=== PATIENT | female | born 1990 | race Caucasian/White ===

== ENCOUNTER 2021-01-16 20:29 | Inpatient (IN) | payer OTHER ==
[2021-01-16] MEDS ORDERED: Water For Irrigation,Sterile 1,000 ML Container IRR PRN (21:08)
[2021-01-16] MEDS ORDERED: Sodium Chloride 0.9% 2.5 ML Syringe FLUSH PRN (21:08)
[2021-01-16] MEDS ORDERED: Sodium Chloride 0.9% 10 ML SDV IV PRN (21:08)
[2021-01-16] MEDS ORDERED: Sodium Chloride 0.9% 10 ML Syringe FLUSH PRN (21:08)
[2021-01-16] MEDS ORDERED: Butorphanol 1 MG/ML SDV IVPUSH PRN (21:08)
[2021-01-16] MEDS ORDERED: Tranexamic Acid 1,000 MG in Sodium Chloride 0.9% 100 ML IV PRN (21:08)
[2021-01-16] MEDS ORDERED: Methylergonovine 0.2 MG/1 ML Amp IM PRN (21:08)
[2021-01-16] MEDS ORDERED: Nalbuphine 10 MG/1 ML Vial IVPUSH PRN (21:08)
[2021-01-16] MEDS ORDERED: Lidocaine 1% 50 ML MDV INJECT PRN (21:08)
[2021-01-16] MEDS ORDERED: Misoprostol 200 MCG Tab PO PRN (21:08)
[2021-01-16] MEDS ORDERED: Carboprost Tromethamine 250 MCG/1 ML Amp IM PRN (21:08)
[2021-01-16] MEDS ORDERED: Oxytocin/0.9 % Sodium Chloride 30 UNIT/500 ML BAG IV SCH (21:15)
[2021-01-17] MEDS ORDERED: Bupivacaine 0.25% 10 ML SDV ONE (00:33)
[2021-01-17] MEDS ORDERED: Ropivacaine HCl/PF 200 ML ONE (00:33)
[2021-01-17] MEDS: Lactated Ringers 1,000 ML IV SCH ×3 (00:50→08:00)
--- NOTE | 2021-01-17 01:02 | PCM.PREANE ---
Preanesthetic Assessment - Anesthesia/Transfusion/Family Hx Anesthesia History: Prior Anesthesia Without Reaction Family History of Anesthesia Reaction: No Transfusion History: No Prior Transfusion(s) - Review of Systems General: No Symptoms Pulmonary: No Symptoms Cardiovascular: No Symptoms Gastrointestinal: No Symptoms Neurological: No Symptoms Other: Reports: None - Physical Assessment NPO Status Date: 01/17/21 NPO Status Time: 00:00 Height: 5 ft 2 in Weight: 175 lb ASA Class: 2 Mental Status: Alert & Oriented x3 Airway Class: Mallampati = 3 Dentition: Reports: Normal Dentition ROM/Head Extension: Full Lungs: Clear to Auscultation, Normal Respiratory Effort Cardiovascular: Regular Rate, Regular Rhythm - Lab Values: Laboratory Last Values WBC 10.20 K/uL (4.0-11.0) 01/16/21 22:00 RBC 4.10 M/uL (4.30-5.90) L 01/16/21 22:00 Hgb 12.4 g/dL (12.0-16.0) 01/16/21 22:00 Hct 35.5 % (36.0-46.0) L 01/16/21 22:00 MCV 86.6 fL (80.0-98.0) 01/16/21 22:00 MCH 30.2 pg (27.0-32.0) 01/16/21 22:00 MCHC 34.9 g/dL (31.0-37.0) 01/16/21 22:00 RDW Std Deviation 40.6 fl (28.0-62.0) 01/16/21 22:00 RDW Coeff of Bryanna 13 % (11.0-15.0) 01/16/21 22:00 Plt Count 231 K/uL (150-400) 01/16/21 22:00 MPV 10.90 fL (7.40-12.00) 01/16/21 22:00 Nucleated RBC % 0.0 /100WBC 01/16/21 22:00 Nucleated RBCs # 0 K/uL 01/16/21 22:00 SARS-CoV-2 RNA (LUIS ANTONIO) NEGATIVE (NEGATIVE) 01/16/21 21:45 Blood Type A POSITIVE 01/16/21 22:00 Antibody Screen NEGATIVE 01/16/21 22:00 - Allergies Allergies/Adverse Reactions: Allergies Allergy/AdvReac Type Severity Reaction Status Date / Time Sulfa (Sulfonamide Allergy Hives Verified 01/16/21 21:05 Antibiotics) - Blood Blood Available: Yes Product(s) Available: PRBC - Anesthesia Plan Pre-Op Medication Ordered: None - Acknowledgements Anesthesia Type Planned: Epidural Pt an Appropriate Candidate for the Planned Anesthesia: Yes Alternatives and Risks of Anesthesia Discussed w Pt/Guardian: Yes Pt/Guardian Understands and Agrees with Anesthesia Plan: Yes PreAnesthesia Questionnaire HEENT History: Reports: Impaired Vision Cardiovascular History: Reports: None Respiratory History: Reports: None Gastrointestinal History: Reports: Other (See Below) Other Gastrointestinal History: heartburn with Genitourinary History: Reports: None SOLVENT 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: Musculoskeletal History: Reports: Fracture Neurological History: Reports: Concussion Psychiatric History: Reports: None Endocrine/Metabolic History: Reports: None Hematologic History: Reports: None Immunologic History: Reports: None Oncologic (Cancer) History: Reports: None Dermatologic History: Reports: None - Infectious Disease History Infectious Disease History: Reports: Chicken Pox - Past Surgical History HEENT Surgical History: Reports: None Female Surgical History: Reports: None Musculoskeletal Surgical History: Reports: ORIF - SUBSTANCE USE Tobacco Use Status *Q: Never Tobacco User Second Hand Smoke Exposure: No Recreational Drug Use History: No - HOME MEDS Home Medications: Home Meds Calcium Carb/Magnesium Hydrox [Rolaids Chewable Tablet] 2 tab PO ASDIRECTED PRN 01/16/21 [History] Vit #76/Iron,Carb/Fa [Pnv 29-1 Tablet] 1 tab PO DAILY 01/16/21 [History] - CURRENT (IN HOUSE) MEDS Current Meds: Current Medications Butorphanol Tartrate (Butorphanol 1 Mg/Ml Sdv) 1 mg IVPUSH Q1H PRN PRN Reason: Pain (severe 7-10) Carboprost Tromethamine (Carboprost Tromethamine 250 Mcg/1 Ml Amp) 250 mcg IM ASDIRECTED PRN PRN Reason: Post Hemorrhage Oxytocin/Sodium Chloride (Oxytocin 30 Unit/500 Ml-Ns) 30 unit in 500 mls @ 500 mls/hr IV TITRATE [facility] Tranexamic Acid 1,000 mg/ (Sodium Chloride) 110 mls @ 660 mls/hr IV ONETIME PRN PRN Reason: Bleeding Lactated Ringer's (Ringers, Lactated) 1,000 mls @ 150 mls/hr IV ASDIRECTED SHANTEL Last Admin: 01/17/21 00:50 Dose: 999 mls/hr Documented by: Lidocaine HCl (Lidocaine 1% 50 Ml Mdv) 50 ml INJECT ONETIME PRN PRN Reason: Laceration repair Methylergonovine Maleate (Methylergonovine 0.2 Mg/1 Ml Amp) 0.2 mg IM ASDIRECTED PRN PRN Reason: Post Hemorrhage Misoprostol (Misoprostol 200 Mcg Tab) 200 mcg PO ONETIME PRN PRN Reason: Post Hemorrhage Nalbuphine HCl (Nalbuphine 10 Mg/1 Ml Vial) 10 mg IVPUSH Q1H PRN PRN Reason: Pain (severe 7-10) Sodium Chloride (Sodium Chloride 0.9% 10 Ml Syringe) 10 ml FLUSH ASDIRECTED PRN PRN Reason: Keep Vein Open Sodium Chloride (Sodium Chloride 0.9% 2.5 Ml Syringe) 2.5 ml FLUSH ASDIRECTED PRN PRN Reason: Keep Vein Open Sodium Chloride (Sodium Chloride 0.9% 10 Ml Sdv) 10 ml IV ASDIRECTED PRN PRN Reason: IV Use Sterile Water (Water For Irrigation,Sterile 1,000 Ml Container) 1,000 ml IRR ASDIRECTED PRN PRN Reason: delivery Discontinued Medications Bupivacaine HCl (Bupivacaine 0.25% 10 Ml Sdv) Confirm Administered Dose 10 ml .ROUTE .STK-MED ONE Stop: 01/17/21 00:34 Ropivacaine (Naropin 0.2%) Confirm Administered Dose 200 mls @ as directed .ROUTE .[facility]-MED ONE Stop: 01/17/21 00:34 - Pre-Procedure Checklist Attending Provider Aware: Yes Chart Reviewed: Yes Consent Signed: Yes Labs Reviewed: Yes VS/FHR Reviewed: Yes Patient Identification Confirmation Method: Reports: Verbal Patient Pt an Appropriate Candidate for the Planned Anesthesia: Yes Alternatives and Risks of Anesthesia Discussed w Pt/Guardian: Yes - Procedure Procedure Start Date: 01/17/21 Procedure Start Time: 00:[address]: Reports: Blood Pressure, Heart Rate, SPO2 Functional IV: Yes Safety Measures: Reports: Patient Identified, Procedure Verified, Site Verified, Procedure Time Out Patient Position: Reports: Left Lateral Prep: Reports: Betadine x3 Local Anesthetic: Reports: Intradermal Wheal w Lidocaine 1% Regional Placement Level: Reports: L3-4 Needle: Reports: 17 g Touhy Approach: Reports: Midline Technique: Reports: ELYSIA Plastic Syringe Parasthesia: Reports: None Test Dose Time: 00:43 Test Dose Medication: Reports: Lidocaine 1.5% w Epinephrine 1:200,000 Test Dose Response: Reports: Negative Loading Dose Time: 00:42 Loading Dose Medication: bupivicaine 0.25% 10cc Loading Dose Patient Position: sitting Continuous Infusion Start Time: 00:45 Continuous Infusion Medication: ropivicaine 0.2% Continuous Infusion Rate: 15 Continuous Infusion PCS Bolus Option: 4 Patient Position Post Placement: Reports: Supline/CHIQUIS Level Achieved: adequate VS and FHR Monitored in Unit Post Placement: Yes Procedure End Date: 01/17/21 Procedure End Time: 01:35
[2021-01-17] MEDS ORDERED: Sodium Chloride 0.9% 1,000 ML IRR SCH (06:00)
[2021-01-17] MEDS ORDERED: Terbutaline 1 MG/ML SDV SUBCUT PRN (06:45)
[2021-01-17] MEDS ORDERED: Oxytocin/0.9 % Sodium Chloride 30 UNIT/500 ML BAG IV SCH (06:45)
[2021-01-17] MEDS ORDERED: Lanolin 100% Cream 7 GM Tube TOP PRN (09:26)
[2021-01-17] MEDS ORDERED: Benzocaine/Menthol 20%-0.5% Spray 78 GM Cannister TOP PRN (09:26)
[2021-01-17] MEDS ORDERED: Witch Hazel Medicated Pads 40/Jar TOP PRN (09:26)
[2021-01-17] MEDS ORDERED: Bisacodyl 10 MG Supp RECTAL PRN (09:26)
[2021-01-17] MEDS ORDERED: Ibuprofen 400 MG Tab PO PRN (09:26)
[2021-01-17] MEDS ORDERED: Docusate Sodium 100 MG Cap PO PRN (09:26)
[2021-01-17] MEDS ORDERED: Acetaminophen 500 MG Tab PO PRN (09:26)
[2021-01-17] MEDS ORDERED: oxyCODONE 5 MG Tab PO PRN (09:26)
--- NOTE | 2021-01-17 09:38 | PCM.DEL ---
L & D Note - General Info Date of Service: 01/17/21 Mother's Due Date: 01/10/21 - Delivery Note Labor: Spontaneous Delivery Method: Spontaneous Vaginal Delivery-Single Delivery Mode: Vacuum Extraction Presentation: Right Occiput Anterior (SOPHIE) Nuchal Cord: Present (x1, loose, reduced) Anesthesia Type: Epidural Amniotic Fluid Description: Meconium Stained Laceration: 1st Degree, Labial (bilateral) Suture type: Other (2-0 Vicryl, 3-0 Chromic) Placenta: Intact, Spontaneous (sent for further evaluation due to small size) Cord: 3 Vessels Estimated Blood Loss: 150 Resuscitation Needed: No : Bulb Syringe Score 1 min: 8 Score 5 min: 9 Delivery Comments (Free Text/Narrative):: Dictation #[id number] - General Info Date of Service: 01/17/21 - Patient Data Weight - Most Recent: 175 lb Lab Results Last 24 Hours: Laboratory Results - last 24 hr 01/16/21 01/16/21 01/16/21 Range/Units 21:45 22:00 22:00 WBC 10.20 (4.0-11.0) K/uL RBC 4.10 L (4.30-5.90) M/uL Hgb 12.4 (12.0-16.0) g/dL Hct 35.5 L (36.0-46.0) % MCV 86.6 (80.0-98.0) fL MCH 30.2 (27.0-32.0) pg MCHC 34.9 (31.0-37.0) g/dL RDW Std Deviation 40.6 (28.0-62.0) fl RDW Coeff of Bryanna 13 (11.0-15.0) % Plt Count 231 (150-400) K/uL MPV 10.90 (7.40-12.00) fL Nucleated RBC % 0.0 /100WBC Nucleated RBCs # 0 K/uL SARS-CoV-2 RNA (LUIS ANTONIO) NEGATIVE (NEGATIVE) Blood Type A POSITIVE Antibody Screen NEGATIVE Med Orders - Current: Current Medications Acetaminophen (Acetaminophen 500 Mg Tab) 500 mg PO Q4H PRN PRN Reason: Pain (mild 1-3) Acetaminophen (Acetaminophen 500 Mg Tab) 1,000 mg PO Q4H PRN PRN Reason: Pain (mild 1-3) Benzocaine/Menthol (Benzocaine/Menthol 20%-0.5% [place] 78 Gm Cannister) 78 gm TOP ASDIRECTED PRN PRN Reason: Perineal Comfort Measure Bisacodyl (Bisacodyl 10 Mg Supp) 10 mg RECTAL ONETIME PRN PRN Reason: Constipation Butorphanol Tartrate (Butorphanol 1 Mg/Ml Sdv) 1 mg IVPUSH Q1H PRN PRN Reason: Pain (severe 7-10) Carboprost Tromethamine (Carboprost Tromethamine 250 Mcg/1 Ml Amp) 250 mcg IM ASDIRECTED PRN PRN Reason: Post Hemorrhage Docusate Sodium (Docusate Sodium 100 Mg Cap) 100 mg PO Q12H PRN PRN Reason: Constipation Emollient Ointment (Lanolin 100% Cream 7 Gm Tube) 0 gm TOP ASDIRECTED PRN PRN Reason: Sore Nipples Oxytocin/Sodium Chloride (Oxytocin 30 Unit/500 Ml-Ns) 30 unit in 500 mls @ 500 mls/hr IV TITRATE [facility] Tranexamic Acid 1,000 mg/ (Sodium Chloride) 110 mls @ 660 mls/hr IV ONETIME PRN PRN Reason: Bleeding Lactated Ringer's (Ringers, Lactated) 1,000 mls @ 150 mls/hr IV ASDIRECTED [facility] Last Admin: 01/17/21 03:12 Dose: 150 mls/hr Documented by: Sodium Chloride (Sodium Chloride 0.9%) 1,000 mls @ 125 mls/hr IRR ASDIRECTED [facility] Oxytocin/Sodium Chloride (Oxytocin 30 Unit/500 Ml-Ns) 30 unit in 500 mls @ 2 mls/hr IV TITRATE [facility]; Protocol Last Admin: 01/17/21 07:21 Dose: 2 munits/min, 2 mls/hr Documented by: Ibuprofen (Ibuprofen 400 Mg Tab) 400 mg PO Q4H PRN PRN Reason: Pain (mild 1-3) Ibuprofen (Ibuprofen 800 Mg Tab) 800 mg PO Q6H PRN PRN Reason: Pain (mild 1-3) Lidocaine HCl (Lidocaine 1% 50 Ml Mdv) 50 ml INJECT ONETIME PRN PRN Reason: Laceration repair Methylergonovine Maleate (Methylergonovine 0.2 Mg/1 Ml Amp) 0.2 mg IM ASDIRECTE D PRN PRN Reason: Post Hemorrhage Misoprostol (Misoprostol 200 Mcg Tab) 200 mcg PO ONETIME PRN PRN Reason: Post Hemorrhage Nalbuphine HCl (Nalbuphine 10 Mg/1 Ml Vial) 10 mg IVPUSH Q1H PRN PRN Reason: Pain (severe 7-10) Oxycodone HCl (Oxycodone 5 Mg Tab) 5 mg PO Q2H PRN PRN Reason: Pain (severe 7-10) Sodium Chloride (Sodium Chloride 0.9% 10 Ml Syringe) 10 ml FLUSH ASDIRECTED PRN PRN Reason: Keep Vein Open Sodium Chloride (Sodium Chloride 0.9% 2.5 Ml Syringe) 2.5 ml FLUSH ASDIRECTED PRN PRN Reason: Keep Vein Open Sodium Chloride (Sodium Chloride 0.9% 10 Ml Sdv) 10 ml IV ASDIRECTED PRN PRN Reason: IV Use Sterile Water (Water For Irrigation,Sterile 1,000 Ml Container) 1,000 ml IRR ASDIRECTED PRN PRN Reason: delivery Terbutaline Sulfate (Terbutaline 1 Mg/Ml Sdv) 0.25 mg SUBCUT ASDIRECTED PRN PRN Reason: Tacysystole Witch Melyssa (Witch Melyssa Medicated Pads 40/Jar) 1 pad TOP ASDIRECTED PRN PRN Reason: comfort care Discontinued Medications Bupivacaine HCl (Bupivacaine 0.25% 10 Ml Sdv) Confirm Administered Dose 10 ml .ROUTE .STK-MED ONE Stop: 01/17/21 00:34 Ropivacaine (Naropin 0.2%) Confirm Administered Dose 200 mls @ as directed .ROUTE .STK-MED ONE Stop: 01/17/21 00:34 - Exam Urinary Catheter Total Time: 0Days 0Hours - Problem List Review Problem List Initiated/Reviewed/Updated: Yes - My Orders Last 24 Hours: My Active Orders 01/17/21 09:26 Acetaminophen [Tylenol Extra Strength] 1,000 mg PO Q4H PRN Acetaminophen [Tylenol Extra Strength] 500 mg PO Q4H PRN Benzocaine/Menthol [Dermoplast Pain Relief 20%-0.5% [place]] 78 gm TOP ASDIRECTED PRN Docusate Sodium [Colace] 100 mg PO Q12H PRN Ibuprofen [Motrin] 400 mg PO Q4H PRN Ibuprofen [Motrin] 800 mg PO Q6H PRN Lanolin [Lansinoh HPA] See Dose Instructions TOP ASDIRECTED PRN bisacodyL [Dulcolax] 10 mg RECTAL ONETIME PRN oxyCODONE 5 mg PO Q2H PRN witch Melyssa [Tucks] 1 pad TOP ASDIRECTED PRN 01/17/21 09:27 Patient Status [ADT] Routine May Shower [RC] ASDIRECTED Up ad Lroa [RC] ASDIRECTED Vital Signs [RC] PER UNIT ROUTINE Assess Lochia [WOMSER] Per Unit Routine Assess Uterine Involution [WOMSER] Per Unit Routine Peripheral IV Discontinue [OM.PC] Routine 01/18/21 05:11 HEMOGLOBIN/HEMATOCRIT,HH [HEME] Timed - Assessment Assessment:: 30 year old G1 now P1 s/p vacuum assisted vaginal delivery - Plan Plan:: Routine cares * Rh positive, rubella immune, GBS negative * PO pain medication ordered PRN * Encourage ambulation and fluid intake when able * Regular diet as tolerated * , nursing assistance PRN Dispo: stable. Admit to floor. Anticipate routine course.
--- NOTE | 2021-01-17 12:37 | OR ---
SURGEON: DOMONIQUE GOLDBERG MD DATE OF PROCEDURE: 01/17/2021 PROCEDURE: Vacuum-assisted vaginal delivery. PREOPERATIVE DIAGNOSES: 1. Term intrauterine at 41 weeks 0 days. 2. Post dates . POSTOPERATIVE DIAGNOSES: 1. Term intrauterine at 41 weeks 0 days. 2. Post dates . PROCEDURES PERFORMED: Vacuum-assisted vaginal delivery, repair of bilateral labial laceration and first-degree perineal laceration. PRIMARY SURGEON: Domonique Goldberg MD ANESTHESIA: Epidural. COMPLICATIONS: None known. FINDINGS: Viable male infant in cephalic presentation. scores 8 and 9. weight not available at this time. Nuchal cord x1 loose and reduced for delivery of the head. Placenta expressed intact. Small umbilical cord noted. INDICATION FOR PROCEDURE: The patient is a 30-year-old, 1, para 0, 41 weeks 0 days, presented to Labor and Delivery in active labor, found to be 4 cm dilated and admitted at that time. Labor slowly progressed and variable decelerations were occasionally noted. Artificial rupture of membranes occurred at 05:45 a.m. this morning and an IUPC with DFM were then placed due to continued variable decelerations for close monitoring. Meconium-stained fluid was noted at the time of artificial rupture of membrane. Labor then progressed spontaneously and at approximately 7:55 I was notified that the patient was 9-10 cm and deep variables were again noted with every contraction. Dr. Jacobs also en route to the hospital. Upon my arrival to the room, the patient was in lithotomy position and Dr. Jacobs had pushed with one contraction. Noted the fetus was in occiput posterior position. DESCRIPTION OF PROCEDURE: After donning sterile gloves and gown, I then assessed position and confirmed occiput posterior. The patient pushed well over the next few contractions. However, variable decelerations recurred. Throughout pushing efforts, the patient had oxygen per face mask. A sterile vaginal exam was then again performed and I was able to rotate the infant to occiput anterior position. The patient pushed well with next two contractions; however, she expressed fatigue and the variables were still noted. The patient was consented for use of vacuum. Risks of the procedure were reviewed including failure of procedure, scalp laceration, hematoma, maternal injury, , and need for emergent section. Questions were elicited and answered. The patient desired to proceed. The vacuum was then placed at 08:42 and the patient pushed with the next contraction, one pop-off occurred. The device was removed and the patient continued to push to the rest of the contraction. A contraction occurred 2 minutes later and the vacuum was then reapplied. The patient pushed well with contraction. Again, a pop-off was noted. Discussed with the patient we will try one additional time but if pop-off again occurs, we will abandon the vacuum procedure. The patient agreed to proceed. At 8:45, vacuum was applied once more, pressure to the green area, and the patient pushed well contraction and head delivered to the position. The vacuum was then removed. The patient allowed to rest until next contraction. At next contraction, the patient pushed well and infant head delivered atraumatically. Nuchal cord was noted x1, which was found to be loose and was reduced. The remainder of infant's body was delivered, crying vigorously and moving all extremities immediately after the delivery. After approximately 30 seconds, the umbilical cord was clamped and cut and due to baby's figure it was allowed to stay on the patient's abdomen as nursing evaluation was performed. Arterial venous and cord blood gases were then obtained. The placenta was then expressed, intact, and sent to pathology due to small size and small appearing umbilical cord. The vagina and perineum were then evaluated and bilateral superficial labial lacerations were noted, repaired in a running fashion with 3-0 chromic. A first- degree perineal laceration was noted and repaired in the usual fashion with 2-0 Vicryl. Sponge, lap, and needle counts were correct x2. Hemostasis was confirmed. Fundal massage was performed. The patient's bleeding was lame. She tolerated the procedure well and was given care instructions. ANGELINA / JACOBO /[id number]
[2021-01-17] MEDS: Ibuprofen 800 MG Tab PO PRN (15:22)
[2021-01-17] MEDS: Acetaminophen 500 MG Tab PO PRN (18:24)
[2021-01-18] MEDS: Ibuprofen 800 MG Tab PO PRN ×3 (00:15→22:16)
--- NOTE | 2021-01-18 08:15 | PCM.PNPP ---
- General Info Date of Service: 01/18/21 Admission Dx/Problem (Free Text): Labor Subjective Update: Sitting upright in bed during rounds. Pain well controlled. Lochia decreasing. Ambulating and voiding without difficulty. , going well. - General Info Date of Service: 01/18/21 - Patient Data Vital Signs - Most Recent: Last Vital Signs Temp 97.3 F 01/18/21 07:45 Pulse 60 01/18/21 07:45 Resp 16 01/18/21 07:45 BP 122/73 01/18/21 07:45 Pulse Ox 99 01/18/21 07:45 Weight - Most Recent: 175 lb Lab Results - Last 24 Hours: Laboratory Results - last 24 hr 01/18/21 Range/Units 05:14 Hgb 11.3 L (12.0-16.0) g/dL Hct 32.9 L (36.0-46.0) % Med Orders - Current: Current Medications Acetaminophen (Acetaminophen 500 Mg Tab) 500 mg PO Q4H PRN PRN Reason: Pain (mild 1-3) Acetaminophen (Acetaminophen 500 Mg Tab) 1,000 mg PO Q4H PRN PRN Reason: Pain (mild 1-3) Last Admin: 01/17/21 18:24 Dose: 1,000 mg Documented by: Benzocaine/Menthol (Benzocaine/Menthol 20%-0.5% [place] 78 Gm Cannister) 78 gm TOP ASDIRECTED PRN PRN Reason: Perineal Comfort Measure Last Admin: 01/17/21 10:22 Dose: 78 gm Documented by: Bisacodyl (Bisacodyl 10 Mg Supp) 10 mg RECTAL ONETIME PRN PRN Reason: Constipation Butorphanol Tartrate (Butorphanol 1 Mg/Ml Sdv) 1 mg IVPUSH Q1H PRN PRN Reason: Pain (severe 7-10) Carboprost Tromethamine (Carboprost Tromethamine 250 Mcg/1 Ml Amp) 250 mcg IM ASDIRECTED PRN PRN Reason: Post Hemorrhage Docusate Sodium (Docusate Sodium 100 Mg Cap) 100 mg PO Q12H PRN PRN Reason: Constipation Emollient Ointment (Lanolin 100% Cream 7 Gm Tube) 0 gm TOP ASDIRECTED PRN PRN Reason: Sore Nipples Oxytocin/Sodium Chloride (Oxytocin 30 Unit/500 Ml-Ns) 30 unit in 500 mls @ 500 mls/hr IV TITRATE [facility] Tranexamic Acid 1,000 mg/ (Sodium Chloride) 110 mls @ 660 mls/hr IV ONETIME PRN PRN Reason: Bleeding Lactated Ringer's (Ringers, Lactated) 1,000 mls @ 150 mls/hr IV ASDIRECTED SHANT[facility] Last Admin: 01/17/21 08:00 Dose: 999 mls/hr Documented by: Sodium Chloride (Sodium Chloride 0.9%) 1,000 mls @ 125 mls/hr IRR ASDIRECTED [facility] Oxytocin/Sodium Chloride (Oxytocin 30 Unit/500 Ml-Ns) 30 unit in 500 mls @ 2 mls/hr IV TITRATE [facility]; Protocol Last Titration: 01/17/21 08:59 Dose: 999 munits/min, 999 mls/hr Documented by: Ibuprofen (Ibuprofen 400 Mg Tab) 400 mg PO Q4H PRN PRN Reason: Pain (mild 1-3) Ibuprofen (Ibuprofen 800 Mg Tab) 800 mg PO Q6H PRN PRN Reason: Pain (mild 1-3) Last Admin: 01/18/21 00:15 Dose: 800 mg Documented by: Lidocaine HCl (Lidocaine 1% 50 Ml Mdv) 50 ml INJECT ONETIME PRN PRN Reason: Laceration repair Methylergonovine Maleate (Methylergonovine 0.2 Mg/1 Ml Amp) 0.2 mg IM ASDIRECTED PRN PRN Reason: Post Hemorrhage Misoprostol (Misoprostol 200 Mcg Tab) 200 mcg PO ONETIME PRN PRN Reason: Post Hemorrhage Nalbuphine HCl (Nalbuphine 10 Mg/1 Ml Vial) 10 mg IVPUSH Q1H PRN PRN Reason: Pain (severe 7-10) Oxycodone HCl (Oxycodone 5 Mg Tab) 5 mg PO Q2H PRN PRN Reason: Pain (severe 7-10) Sodium Chloride (Sodium Chloride 0.9% 10 Ml Syringe) 10 ml FLUSH ASDIRECTED PRN PRN Reason: Keep Vein Open Sodium Chloride (Sodium Chloride 0.9% 2.5 Ml Syringe) 2.5 ml FLUSH ASDIRECTED PRN PRN Reason: Keep Vein Open Sodium Chloride (Sodium Chloride 0.9% 10 Ml Sdv) 10 ml IV ASDIRECTED PRN PRN Reason: IV Use Sterile Water (Water For Irrigation,Sterile 1,000 Ml Container) 1,000 ml IRR ASDIRECTED PRN PRN Reason: delivery Terbutaline Sulfate (Terbutaline 1 Mg/Ml Sdv) 0.25 mg SUBCUT ASDIRECTED PRN PRN Reason: Tacysystole Witch Katerin (Witch Katerin Medicated Pads 40/Jar) 1 pad TOP ASDIRECTED PRN PRN Reason: comfort care Last Admin: 01/17/21 10:22 Dose: 1 pad Documented by: Discontinued Medications Bupivacaine HCl (Bupivacaine 0.25% 10 Ml Sdv) Confirm Administered Dose 10 ml .ROUTE .STK-MED ONE Stop: 01/17/21 00:34 Last Admin: 01/17/21 21:11 Dose: Not Given Documented by: Ropivacaine (Naropin 0.2%) Confirm Administered Dose 200 mls @ as directed .ROUTE .STKoudai-MED ONE Stop: 01/17/21 00:34 Last Admin: 01/17/21 21:10 Dose: Not Given Documented by: - Infant Interaction Disposition, : [place] at Bedside Interaction: Other (see below) (armament aircraft mechanic in room to exam baby) Feeding: Breastfed ; Nursed Well Support Person: - Recovery Exam Fundal Tone: Firm Fundal Level: 1 Fingerbreadths Below Umbilicus Fundal Placement: Midline Lochia Amount: Scant Lochia Color: Rubra/Red Perineum Description: Other (see below) Other Perinuem Description: Bilateral labial laceration Episiotomy/Laceration: Approximated Bladder Status: Voiding Urinary Elimination: Voided - Exam General: Alert Lungs: Normal Respiratory Effort Cardiovascular: Regular Rate GI/Abdominal Exam: Soft, Non-Tender Extremities: Normal Range of Motion, Non-Tender, No Pedal Edema Skin: Warm, Dry, Intact Neurological: No New Focal Deficit Psy/Mental Status: Normal Mood - Problem List Review Problem List Initiated/Reviewed/Updated: Yes - My Orders Last 24 Hours: My Active Orders 01/17/21 09:26 Acetaminophen [Tylenol Extra Strength] 1,000 mg PO Q4H PRN Acetaminophen [Tylenol Extra Strength] 500 mg PO Q4H PRN Benzocaine/Menthol [Dermoplast Pain Relief 20%-0.5% [place]] 78 gm TOP ASDIRE CTED PRN Docusate Sodium [Colace] 100 mg PO Q12H PRN Ibuprofen [Motrin] 400 mg PO Q4H PRN Ibuprofen [Motrin] 800 mg PO Q6H PRN Lanolin [Lansinoh HPA] See Dose Instructions TOP ASDIRECTED PRN bisacodyL [Dulcolax] 10 mg RECTAL ONETIME PRN oxyCODONE 5 mg PO Q2H PRN witch Katerin [Tucks] 1 pad TOP ASDIRECTED PRN 01/17/21 09:27 Patient Status [ADT] Routine May Shower [RC] ASDIRECTED Up ad Lora [RC] ASDIRECTED Vital Signs [RC] PER UNIT ROUTINE Assess Lochia [WOMSER] Per Unit Routine Assess Uterine Involution [WOMSER] Per Unit Routine Peripheral IV Discontinue [OM.PC] Routine 01/17/21 Lunch Regular Diet [DIET] - Assessment Assessment:: 30 year old PPD1 s/p vacuum assisted vaginal delivery - Plan Plan:: Routine cares * Rh positive, rubella immune, GBS negative * PO pain medication ordered PRN * Encourage ambulation and fluid intake when able * Regular diet as tolerated * , nursing assistance PRN * Contraception: desires Depo Provera. Rx sent to pharmacy. Patient to present to [facility] following hospital discharge for injection. Dispo: stable. Meeting milestones, anticipate discharge today pending maternal/ status. Reviewed discharge instructions. Patient to return to clinic in 4 weeks for PPV
[2021-01-19] MEDS: Ibuprofen 800 MG Tab PO PRN ×2 (04:37→13:37)
[2021-01-19] MEDS: Acetaminophen 500 MG Tab PO PRN ×2 (07:38→19:29)
--- NOTE | 2021-01-19 08:07 | PCM.PNPP ---
- General Info Date of Service: 01/19/21 Admission Dx/Problem (Free Text): Labor Subjective Update: Sitting upright in bed during rounds. Pain well controlled. Lochia decreasing. Ambulating and voiding without difficulty. , going well. - Patient Data Vital Signs - Most Recent: Last Vital Signs Temp 97.8 F 01/19/21 07:57 Pulse 75 01/19/21 07:57 Resp 20 01/19/21 07:57 BP 118/77 01/19/21 07:57 Pulse Ox 97 01/19/21 07:57 Weight - Most Recent: 175 lb Lab Results - Last 24 Hours: Laboratory Results - last 24 hr 01/16/21 Range/Units 22:00 RPR Non-Reac (Non-Reac) Med Orders - Current: Current Medications Acetaminophen (Acetaminophen 500 Mg Tab) 500 mg PO Q4H PRN PRN Reason: Pain (mild 1-3) Acetaminophen (Acetaminophen 500 Mg Tab) 1,000 mg PO Q4H PRN PRN Reason: Pain (mild 1-3) Last Admin: 01/19/21 07:38 Dose: 1,000 mg Documented by: Benzocaine/Menthol (Benzocaine/Menthol 20%-0.5% [place] 78 Gm Cannister) 78 gm TOP ASDIRECTED PRN PRN Reason: Perineal Comfort Measure Last Admin: 01/17/21 10:22 Dose: 78 gm Documented by: Bisacodyl (Bisacodyl 10 Mg Supp) 10 mg RECTAL ONETIME PRN PRN Reason: Constipation Butorphanol Tartrate (Butorphanol 1 Mg/Ml Sdv) 1 mg IVPUSH Q1H PRN PRN Reason: Pain (severe 7-10) Carboprost Tromethamine (Carboprost Tromethamine 250 Mcg/1 Ml Amp) 250 mcg IM ASDIRECTED PRN PRN Reason: Post Hemorrhage Docusate Sodium (Docusate Sodium 100 Mg Cap) 100 mg PO Q12H PRN PRN Reason: Constipation Emollient Ointment (Lanolin 100% Cream 7 Gm Tube) 0 gm TOP ASDIRECTED PRN PRN Reason: Sore Nipples Oxytocin/Sodium Chloride (Oxytocin 30 Unit/500 Ml-Ns) 30 unit in 500 mls @ 500 mls/hr IV TITRATE SHANTEL Tranexamic Acid 1,000 mg/ (Sodium Chloride) 110 mls @ 660 mls/hr IV ONETIME PRN PRN Reason: Bleeding Lactated Ringer's (Ringers, Lactated) 1,000 mls @ 150 mls/hr IV ASDIRECTED SHANTEL Last Admin: 01/17/21 08:00 Dose: 999 mls/hr Documented by: Sodium Chloride (Sodium Chloride 0.9%) 1,000 mls @ 125 mls/hr IRR ASDIRECTED SHANTEL Oxytocin/Sodium Chloride (Oxytocin 30 Unit/500 Ml-Ns) 30 unit in 500 mls @ 2 mls/hr IV TITRATE SHANTEL; Protocol Last Titration: 01/17/21 08:59 Dose: 999 munits/min, 999 mls/hr Documented by: Ibuprofen (Ibuprofen 400 Mg Tab) 400 mg PO Q4H PRN PRN Reason: Pain (mild 1-3) Ibuprofen (Ibuprofen 800 Mg Tab) 800 mg PO Q6H PRN PRN Reason: Pain (mild 1-3) Last Admin: 01/19/21 04:37 Dose: 800 mg Documented by: Lidocaine HCl (Lidocaine 1% 50 Ml Mdv) 50 ml INJECT ONETIME PRN PRN Reason: Laceration repair Methylergonovine Maleate (Methylergonovine 0.2 Mg/1 Ml Amp) 0.2 mg IM ASDIRECTED PRN PRN Reason: Post Hemorrhage Misoprostol (Misoprostol 200 Mcg Tab) 200 mcg PO ONETIME PRN PRN Reason: Post Hemorrhage Nalbuphine HCl (Nalbuphine 10 Mg/1 Ml Vial) 10 mg IVPUSH Q1H PRN PRN Reason: Pain (severe 7-10) Oxycodone HCl (Oxycodone 5 Mg Tab) 5 mg PO Q2H PRN PRN Reason: Pain (severe 7-10) Sodium Chloride (Sodium Chloride 0.9% 10 Ml Syringe) 10 ml FLUSH ASDIRECTED PRN PRN Reason: Keep Vein Open Sodium Chloride (Sodium Chloride 0.9% 2.5 Ml Syringe) 2.5 ml FLUSH ASDIRECTED PRN PRN Reason: Keep Vein Open Sodium Chloride (Sodium Chloride 0.9% 10 Ml Sdv) 10 ml IV ASDIRECTED PRN PRN Reason: IV Use Sterile Water (Water For Irrigation,Sterile 1,000 Ml Container) 1,000 ml IRR ASDIRECTED PRN PRN Reason: delivery Terbutaline Sulfate (Terbutaline 1 Mg/Ml Sdv) 0.25 mg SUBCUT ASDIRECTED PRN PRN Reason: Tacysystole Witch Melyssa (Witch Melyssa Medicated Pads 40/Jar) 1 pad TOP ASDIRECTED PRN PRN Reason: comfort care Last Admin: 01/17/21 10:22 Dose: 1 pad Documented by: Discontinued Medications Bupivacaine HCl (Bupivacaine 0.25% 10 Ml Sdv) Confirm Administered Dose 10 ml .ROUTE .STK-MED ONE Stop: 01/17/21 00:34 Last Admin: 01/17/21 21:11 Dose: Not Given Documented by: Ropivacaine (Naropin 0.2%) Confirm Administered Dose 200 mls @ as directed .ROUTE .[employer] ONE Stop: 01/17/21 00:34 Last Admin: 01/17/21 21:10 Dose: Not Given Documented by: - Infant Interaction Infant Disposition, : [place] at Bedside Infant Interaction: Other (see below) (backend developer in room to exam baby) Infant Feeding: Breastfed Infant; Nursed Well Support Person: - Recovery Exam Fundal Tone: Firm Fundal Level: At Umbilicus Fundal Placement: Midline Lochia Amount: Scant Lochia Color: Rubra/Red Perineum Description: Intact, Minimal Bruising/Swelling Other Perinuem Description: 1st degree laceration with repair. Episiotomy/Laceration: Approximated Bladder Status: Voiding Urinary Elimination: Voided - Assessment Assessment:: 30 year old PPD1 s/p vacuum assisted vaginal delivery - Plan Plan:: Routine cares * Rh positive, rubella immune, GBS negative * PO pain medication ordered PRN * Encourage ambulation and fluid intake when able * Regular diet as tolerated * , nursing assistance PRN * Contraception: desires Depo Provera. Rx sent to pharmacy. Patient to present to [facility] following hospital discharge for injection. Dispo: stable. Meeting milestones, anticipate discharge today pending maternal/ status. Reviewed discharge instructions. Patient to return to clinic in 4 weeks for PPV
--- NOTE | 2021-01-20 09:11 | PCM.PNPP ---
- General Info Date of Service: 01/20/21 Admission Dx/Problem (Free Text): Subjective Update: Patient doing well , denies any complains , Pumping for to get IV antibiotics for 2 weeks Normal lochia Mood is good Functional Status: Reports: Pain Controlled, Tolerating Diet, Ambulating, Urinating - Review of Systems General: Reports: No Symptoms HEENT: Reports: No Symptoms Pulmonary: Reports: No Symptoms Cardiovascular: Reports: No Symptoms Gastrointestinal: Reports: No Symptoms Genitourinary: Reports: No Symptoms Musculoskeletal: Reports: No Symptoms Skin: Reports: No Symptoms Neurological: Reports: No Symptoms Psychiatric: Reports: No Symptoms - General Info Date of Service: 01/20/21 - Patient Data Vital Signs - Most Recent: Last Vital Signs Temp 36.2 C 01/20/21 04:00 Pulse 82 01/20/21 04:00 Resp 16 01/20/21 04:00 BP 118/85 01/20/21 04:00 Pulse Ox 98 01/20/21 04:00 Weight - Most Recent: 79.379 kg Med Orders - Current: Current Medications Acetaminophen (Acetaminophen 500 Mg Tab) 500 mg PO Q4H PRN PRN Reason: Pain (mild 1-3) Acetaminophen (Acetaminophen 500 Mg Tab) 1,000 mg PO Q4H PRN PRN Reason: Pain (mild 1-3) Last Admin: 01/19/21 19:29 Dose: 1,000 mg Documented by: Benzocaine/Menthol (Benzocaine/Menthol 20%-0.5% [place] 78 Gm Cannister) 78 gm TOP ASDIRECTED PRN PRN Reason: Perineal Comfort Measure Last Admin: 01/17/21 10:22 Dose: 78 gm Documented by: Bisacodyl (Bisacodyl 10 Mg Supp) 10 mg RECTAL ONETIME PRN PRN Reason: Constipation Butorphanol Tartrate (Butorphanol 1 Mg/Ml Sdv) 1 mg IVPUSH Q1H PRN PRN Reason: Pain (severe 7-10) Carboprost Tromethamine (Carboprost Tromethamine 250 Mcg/1 Ml Amp) 250 mcg IM ASDIRECTED PRN PRN Reason: Post Hemorrhage Docusate Sodium (Docusate Sodium 100 Mg Cap) 100 mg PO Q12H PRN PRN Reason: Constipation Emollient Ointment (Lanolin 100% Cream 7 Gm Tube) 0 gm TOP ASDIRECTED PRN PRN Reason: Sore Nipples Oxytocin/Sodium Chloride (Oxytocin 30 Unit/500 Ml-Ns) 30 unit in 500 mls @ 500 mls/hr IV TITRATE SHANTEL Tranexamic Acid 1,000 mg/ (Sodium Chloride) 110 mls @ 660 mls/hr IV ONETIME PRN PRN Reason: Bleeding Lactated Ringer's (Ringers, Lactated) 1,000 mls @ 150 mls/hr IV ASDIRECTED SHANTEL Last Admin: 01/17/21 08:00 Dose: 999 mls/hr Documented by: Sodium Chloride (Sodium Chloride 0.9%) 1,000 mls @ 125 mls/hr IRR ASDIRECTED SHANTEL Oxytocin/Sodium Chloride (Oxytocin 30 Unit/500 Ml-Ns) 30 unit in 500 mls @ 2 mls/hr IV TITRATE SHANTEL; Protocol Last Titration: 01/17/21 08:59 Dose: 999 munits/min, 999 mls/hr Documented by: Ibuprofen (Ibuprofen 400 Mg Tab) 400 mg PO Q4H PRN PRN Reason: Pain (mild 1-3) Ibuprofen (Ibuprofen 800 Mg Tab) 800 mg PO Q6H PRN PRN Reason: Pain (mild 1-3) Last Admin: 01/19/21 13:37 Dose: 800 mg Documented by: Lidocaine HCl (Lidocaine 1% 50 Ml Mdv) 50 ml INJECT ONETIME PRN PRN Reason: Laceration repair Methylergonovine Maleate (Methylergonovine 0.2 Mg/1 Ml Amp) 0.2 mg IM ASDIRECTED PRN PRN Reason: Post Hemorrhage Misoprostol (Misoprostol 200 Mcg Tab) 200 mcg PO ONETIME PRN PRN Reason: Post Hemorrhage Nalbuphine HCl (Nalbuphine 10 Mg/1 Ml Vial) 10 mg IVPUSH Q1H PRN PRN Reason: Pain (severe 7-10) Oxycodone HCl (Oxycodone 5 Mg Tab) 5 mg PO Q2H PRN PRN Reason: Pain (severe 7-10) Sodium Chloride (Sodium Chloride 0.9% 10 Ml Syringe) 10 ml FLUSH ASDIRECTED PRN PRN Reason: Keep Vein Open Sodium Chloride (Sodium Chloride 0.9% 2.5 Ml Syringe) 2.5 ml FLUSH ASDIRECTED PRN PRN Reason: Keep Vein Open Sodium Chloride (Sodium Chloride 0.9% 10 Ml Sdv) 10 ml IV ASDIRECTED PRN PRN Reason: IV Use Sterile Water (Water For Irrigation,Sterile 1,000 Ml Container) 1,000 ml IRR ASDIRECTED PRN PRN Reason: delivery Terbutaline Sulfate (Terbutaline 1 Mg/Ml Sdv) 0.25 mg SUBCUT ASDIRECTED PRN PRN Reason: Tacysystole Witch Melyssa (Witch Melyssa Medicated Pads 40/Jar) 1 pad TOP ASDIRECTED PRN PRN Reason: comfort care Last Admin: 01/17/21 10:22 Dose: 1 pad Documented by: Discontinued Medications Bupivacaine HCl (Bupivacaine 0.25% 10 Ml Sdv) Confirm Administered Dose 10 ml .ROUTE .STK-MED ONE Stop: 01/17/21 00:34 Last Admin: 01/17/21 21:11 Dose: Not Given Documented by: Ropivacaine (Naropin 0.2%) Confirm Administered Dose 200 mls @ as directed .ROUTE .[employer]-MED ONE Stop: 01/17/21 00:34 Last Admin: 01/17/21 21:10 Dose: Not Given Documented by: - Infant Interaction Infant Disposition, : at Bedside Infant Interaction: Other (see below) (digitizer operator in room to exam baby) Infant Feeding: Breastfed ; Nursed Well Support Person: - Recovery Exam Fundal Tone: Firm Fundal Level: 2 Fingerbreadths Below Umbilicus Fundal Placement: Midline Lochia Amount: None Lochia Color: Rubra/Red Perineum Description: Other (see below) Other Perinuem Description: 1st degree laceration with repair. Episiotomy/Laceration: Approximated Bladder Status: Voiding Urinary Elimination: Voided - Exam General: Alert, Oriented HEENT: Pupils Equal Neck: Supple Lungs: Clear to Auscultation, Normal Respiratory Effort Cardiovascular: Regular Rate, Regular Rhythm GI/Abdominal Exam: Normal Bowel Sounds Extremities: Normal Inspection Neurological: No New Focal Deficit Psy/Mental Status: Alert - Problem List & Annotations (1) Vaginal delivery SNOMED Code(s): 709886694 Code(s): O80 - ENCOUNTER FOR FULL-TERM UNCOMPLICATED DELIVERY Status: Acute Current Visit: Yes - Problem List Review Problem List Initiated/Reviewed/Updated: Yes - Assessment Assessment:: 30 year old P2 s/p vacuum assisted vaginal delivery - Plan Plan:: Routine cares * Rh positive, rubella immune, GBS negative * PO pain medication ordered PRN * Encourage ambulation and fluid intake when able * Regular diet as tolerated * , nursing assistance PRN * Contraception: desires Depo Provera. Rx sent to pharmacy. Patient to present to [facility] following hospital discharge for injection. Dispo: stable.Discharge today pending maternal/ status. Reviewed discharge instructions. Patient to return to clinic in 4 weeks for PPV
[2021-01-20] MEDS: Acetaminophen 500 MG Tab PO PRN (09:50)
== END 2021-01-20 12:36 | disposition home or self-care (01) | DRG 807 ==
LOC: MW.OBCHECK 20:29 → MW.OB 21:39 → OBSVTOIN 01-17 09:27 → MW.OB 01-17 13:42
PROVIDERS: ADMIT Obstetrics & Gynecology; ATTEND Obstetrics & Gynecology
PROC: 10D07Z6 Extraction of Products of Conception, Vacuum, Via Natural or Artificial Opening (ICD-10-PCS; principal; 2021-01-17)
PROC: 10H07YZ Insertion of Other Device into Products of Conception, Via Natural or Artificial Opening (ICD-10-PCS; 2021-01-17)
PROC: 10907ZC Drainage of Amniotic Fluid, Therapeutic from Products of Conception, Via Natural or Artificial Opening (ICD-10-PCS; 2021-01-17)
PROC: 4A1HXCZ Monitoring of Products of Conception, Cardiac Rate, External Approach (ICD-10-PCS; 2021-01-17)
PROC: 0HQ9XZZ Repair Perineum Skin, External Approach (ICD-10-PCS; 2021-01-17)
DX: O77.0 Labor and delivery complicated by meconium in amniotic fluid (principal); Z37.0 Single live birth; Z3A.41 41 weeks gestation of pregnancy; O48.0 Post-term pregnancy; O76 Abnormality in fetal heart rate and rhythm complicating labor and delivery; O69.81X0 Labor and delivery complicated by cord around neck, without compression, not applicable or unspecified; O70.0 First degree perineal laceration during delivery; Z20.822 Contact with and (suspected) exposure to COVID-19
CPT/HCPCS: 01967; 36415; 51701; 51702; 59025; 59409; 85014; 85018; 85027; 86592; 86850; 86900; 86901; A9270-GY; J2590; J2795; J3490; J7120; U0002

== ENCOUNTER 2022-11-20 10:01 | Day surgery (SDC) | payer BC ==
[~2022-11-20 10:01] MED LIST: Lactated Ringers 1,000 ML IV SCH; Sodium Chloride 0.9% 10 ML Syringe FLUSH PRN; Sodium Chloride 0.9% 2.5 ML Syringe FLUSH PRN; Sodium Chloride 0.9% 20 ML SDV IV PRN
[2022-11-20] MEDS ORDERED: Propofol 200 MG/20 ML SDV ONE ×2 (10:51→11:12)
[2022-11-20] MEDS ORDERED: Lidocaine 2% 5 ML SDV ONE (10:51)
== END 2022-11-20 12:03 | disposition home or self-care (01) ==
LOC: MW.SDS 10:01
PROVIDERS: ATTEND Surgery
DX: D12.3 Benign neoplasm of transverse colon (principal); K63.89 Other specified diseases of intestine; Z88.2 Allergy status to sulfonamides; Z79.899 Other long term (current) drug therapy
CPT/HCPCS: 45380; 81025; J2704; J7120; J3490

== ENCOUNTER 2023-03-10 07:29 | Emergency (ER) | payer BC ==
[2023-03-10] MEDS ORDERED: diphenhydrAMINE 50 MG/ML SDV IVPUSH ONE (07:53)
[2023-03-10] MEDS ORDERED: Metoclopramide 10 MG/2 ML SDV IVPUSH ONE (07:53)
[2023-03-10] MEDS ORDERED: Sodium Chloride 0.9% 2.5 ML Syringe FLUSH PRN (07:53)
[2023-03-10] MEDS ORDERED: Sodium Chloride 0.9% 10 ML Syringe FLUSH PRN (07:53)
[2023-03-10] MEDS ORDERED: Lactated Ringers 1,000 ML IV ONE (07:53)
[2023-03-10 08:02] LABS: BASOPHILS ABSOLUTE AUTO 0.1 K/uL (0.0-0.1); BASOPHILS PERCENT AUTO 0.8 % (0.0-1.5); EOSINOPHILS ABSOLUTE AUTO 0.1 K/uL (0.0-0.7); HEMATOCRIT 40.6 % (36.0-46.0); HEMOGLOBIN 13.9 g/dL (12.0-16.0); LYMPHOCYTES ABSOLUTE AUTO 1.3 K/uL (0.6-2.4); LYMPHOCYTES PERCENT AUTO 18.4 % (16.0-40.0); MEAN CORPUSCULAR HEMOGLOBIN 29.8 pg (27.0-32.0); MEAN CORPUSCULAR HGB CONC 34.2 g/dL (31.0-37.0); MEAN CORPUSCULAR VOLUME 87.1 fL (80.0-98.0); MONOCYTES ABSOLUTE AUTO 0.8 K/uL (0.0-0.8); MONOCYTES PERCENT AUTO 10.8 % (0.0-15.0); NEUTROPHILS ABSOLUTE AUTO 4.9 K/uL (1.4-5.7); NRBC ABSOLUTE 0 K/uL; PLATELET COUNT,PLT 323 K/uL (150-400); RED BLOOD CELL COUNT 4.66 M/uL (4.30-5.90); WHITE BLOOD CELL COUNT,WBC 7.12 K/uL (4.0-11.0)
[2023-03-10 08:36] LABS: A/G RATIO 1.1 (0.9-1.6); ALBUMIN 3.9 g/dL (3.4-5.0); BILIRUBIN TOTAL 0.7 mg/dL (0.2-1.0); CALCIUM 8.8 mg/dL (8.5-10.1); CARBON DIOXIDE,CO2 25.6 mmol/L (21.0-32.0); CREATININE 0.7 mg/dL (0.6-1.0); EST CRCL DRUG DOSING (CG) 91.25 mL/min; MAGNESIUM 1.8 mg/dL (1.8-2.4); POTASSIUM,K 3.8 mmol/L (3.5-5.1); PROTEIN TOTAL,TP 7.3 g/dL (6.4-8.2)
== END 2023-03-10 09:39 | disposition home or self-care (01) ==
LOC: MW.ED 07:29
DX: O21.9 Vomiting of pregnancy, unspecified (principal); O99.281 Endocrine, nutritional and metabolic diseases complicating pregnancy, first trimester; E86.0 Dehydration; Z3A.01 Less than 8 weeks gestation of pregnancy; Z88.2 Allergy status to sulfonamides
CPT/HCPCS: 36415; 80053; 83690; 83735; 84702; 85025; 96361; 96374; 96375; 99284; J1200; J2765; J3490; J7120

== ENCOUNTER 2023-11-08 09:23 | Inpatient (IN) | payer BC ==
[2023-11-08] MEDS ORDERED: Tranexamic Acid IN NACL,ISO-OS 1,000 MG in Premix Bag 1 BAG IV PRN (09:30)
[2023-11-08] MEDS ORDERED: Ondansetron 4 MG/2 ML SDV IVPUSH PRN (09:30)
[2023-11-08] MEDS ORDERED: Misoprostol 200 MCG Tab PO PRN (09:30)
[2023-11-08] MEDS ORDERED: Nalbuphine 10 MG/0.5 ML Syringe IVPUSH PRN (09:30)
[2023-11-08] MEDS ORDERED: Carboprost Tromethamine 250 MCG/1 mL Vial IM PRN (09:30)
[2023-11-08] MEDS ORDERED: Sodium Chloride 0.9% 20 ML SDV IV PRN (09:30)
[2023-11-08] MEDS ORDERED: Oxytocin/0.9 % Sodium Chloride 30 UNIT/500 ML BAG IV SCH (09:30)
[2023-11-08] MEDS ORDERED: Methylergonovine 0.2 MG/1 ML Amp IM PRN (09:30)
[2023-11-08] MEDS ORDERED: Sodium Chloride 0.9% 2.5 ML Syringe FLUSH PRN ×2 (09:30→21:47)
[2023-11-08] MEDS ORDERED: Water For Irrigation,Sterile 1,000 ML Container IRR PRN (09:30)
[2023-11-08] MEDS ORDERED: Lidocaine 1% 50 ML MDV INJECT PRN (09:30)
[2023-11-08] MEDS ORDERED: Sodium Chloride 0.9% 10 ML Syringe FLUSH PRN ×2 (09:30→21:47)
[2023-11-08] MEDS ORDERED: Terbutaline 1 MG/ML SDV SUBCUT PRN (09:33)
[2023-11-08 10:15] LABS: HEMATOCRIT 33.2 % (37.0-47.0); HEMOGLOBIN 11.7 g/dL (12.0-16.0); MEAN CORPUSCULAR HEMOGLOBIN 30.4 pg (28.0-32.0); MEAN CORPUSCULAR HGB CONC 35.2 g/dL (32.0-36.0); MEAN CORPUSCULAR VOLUME 86.2 fL (83.0-99.0); MEAN PLATELET VOLUME 11.2 fL (9.4-12.3); PLATELET COUNT,PLT 167 K/uL (150-400); RED BLOOD CELL COUNT 3.85 M/uL (4.10-5.30); WHITE BLOOD CELL COUNT,WBC 6.36 K/uL (3.9-11.3)
[2023-11-08] MEDS: Lactated Ringers 1,000 ML IV SCH (10:28)
[2023-11-08] MEDS: Oxytocin/0.9 % Sodium Chloride 30 UNIT/500 ML BAG IV SCH (10:29)
[2023-11-08] MEDS ORDERED: Naloxone 0.4 MG/ML SDV IVPUSH PRN (11:01)
[2023-11-08] MEDS ORDERED: fentaNYL 100 MCG/2 ML SDV IVPUSH PRN ×2 (11:01→11:08)
[2023-11-08] MEDS ORDERED: Bupivacaine 0.5% 10 ML SDV ONE (17:19)
[2023-11-08] MEDS ORDERED: Phenylephrine HCl In 0.9% NaCl 1 MG/10 ML Syringe ONE (17:20)
[2023-11-08] MEDS: Ropivacaine HCl/PF 200 ML ONE (17:36)
[2023-11-08] MEDS ORDERED: ePHEDrine 50 MG/ML SDV IVPUSH PRN ×2 (17:40)
[2023-11-08] MEDS ORDERED: Phenylephrine HCl In 0.9% NaCl 1 MG/10 ML Syringe IVPUSH PRN (17:40)
[2023-11-08] MEDS ORDERED: Ropivacaine HCl/PF 400 MG in Premix Bag 1 BAG EPIDUR SCH (17:45)
[2023-11-08] MEDS ORDERED: Calcium Carbonate 500 MG Tab.Chew PO STA (21:11)
[2023-11-08] MEDS ORDERED: Aluminum Hydroxide/Magnesium Hydroxide/Simethicone XS Susp 30 ML Cup PO PRN (21:47)
[2023-11-08] MEDS ORDERED: diphenhydrAMINE 50 MG Cap PO PRN (21:47)
[2023-11-08] MEDS ORDERED: Sennosides 8.6 MG Tab PO PRN (21:47)
[2023-11-08] MEDS ORDERED: Docusate Sodium 100 MG Cap PO PRN (21:47)
[2023-11-08] MEDS ORDERED: Simethicone 80 MG Tab.Chew PO PRN (21:47)
[2023-11-08] MEDS ORDERED: Bisacodyl 10 MG Supp RECTAL PRN (21:47)
[2023-11-08] MEDS ORDERED: Famotidine 20 MG Tab PO PRN (21:47)
[2023-11-08] MEDS: Benzocaine/Menthol 20%-0.5% Spray 78 GM Cannister TOP PRN (22:48)
[2023-11-08] MEDS: Witch Hazel Medicated Pads 40/Jar TOP PRN (22:48)
[2023-11-08] MEDS: Lanolin 100% Cream 7 GM Tube TOP PRN (22:49)
[2023-11-09] MEDS: Acetaminophen 500 MG Tab PO PRN (01:11)
[2023-11-09 07:24] LABS: HEMATOCRIT 35.3 % (37.0-47.0); HEMOGLOBIN 12.1 g/dL (12.0-16.0)
[2023-11-09] MEDS: Ibuprofen 800 MG Tab PO PRN (08:00)
== END 2023-11-09 22:40 | disposition home or self-care (01) | DRG 560 ==
LOC: MW.OBCHECK 09:23 → MW.OB 09:24 → OBSVTOIN 09:30 → MW.OBCHECK 12:56 → MW.OB 11-09 00:40
PROVIDERS: ADMIT Obstetrics & Gynecology; ATTEND Obstetrics & Gynecology
PROC: 10E0XZZ Delivery of Products of Conception, External Approach (ICD-10-PCS; principal; 2023-11-08)
PROC: 10907ZC Drainage of Amniotic Fluid, Therapeutic from Products of Conception, Via Natural or Artificial Opening (ICD-10-PCS; 2023-11-08)
PROC: 3E033VJ Introduction of Other Hormone into Peripheral Vein, Percutaneous Approach (ICD-10-PCS; 2023-11-08)
PROC: 3E0P7VZ Introduction of Hormone into Female Reproductive, Via Natural or Artificial Opening (ICD-10-PCS; 2023-11-08)
PROC: 3E0R3BZ Introduction of Anesthetic Agent into Spinal Canal, Percutaneous Approach (ICD-10-PCS; 2023-11-08)
PROC: 00HU33Z Insertion of Infusion Device into Spinal Canal, Percutaneous Approach (ICD-10-PCS; 2023-11-08)
DX: O70.0 First degree perineal laceration during delivery (principal); Z3A.40 40 weeks gestation of pregnancy; Z88.2 Allergy status to sulfonamides; Z37.0 Single live birth
CPT/HCPCS: 36415; 51702; 59409; 85014; 85018; 85027; 86592; 86850; 86900; 86901; A9270-GY; J0665; J2371; J2590; J2795; J7120

== ENCOUNTER 2024-07-20 15:36 | Emergency (ER) | payer BC ==
[2024-07-20 17:25] LABS: BASOPHILS ABSOLUTE AUTO 0.09 K/uL (0.00-0.20); BASOPHILS PERCENT AUTO 1.3 % (0.0-1.0); EOSINOPHILS PERCENT AUTO 1.5 % (0.0-6.0); HEMATOCRIT 38.5 % (37.0-47.0); HEMOGLOBIN 13.3 g/dL (12.0-16.0); IMMATURE GRAN ABSOLUTE AUTO 0.01 K/uL (0.00-0.05); IMMATURE GRAN PERCENT AUTO 0.1 % (0.0-0.4); LYMPHOCYTES ABSOLUTE AUTO 1.81 K/uL (1.00-4.80); LYMPHOCYTES PERCENT AUTO 26.7 % (24.0-44.0); MEAN CORPUSCULAR HEMOGLOBIN 29.6 pg (28.0-32.0); MEAN CORPUSCULAR HGB CONC 34.5 g/dL (32.0-36.0); MEAN CORPUSCULAR VOLUME 85.7 fL (83.0-99.0); MEAN PLATELET VOLUME 9.2 fL (9.4-12.3); MONOCYTES ABSOLUTE AUTO 0.59 K/uL (0.00-0.80); MONOCYTES PERCENT AUTO 8.7 % (0.0-8.0); NEUTROPHILS ABSOLUTE AUTO 4.17 K/uL (1.80-7.70); NEUTROPHILS PERCENT AUTO 61.7 % (41.0-71.0); PLATELET COUNT,PLT 330 K/uL (150-400); RED BLOOD CELL COUNT 4.49 M/uL (4.10-5.30); WHITE BLOOD CELL COUNT,WBC 6.77 K/uL (3.9-11.3)
[2024-07-20] MEDS: Iopamidol 755 Mg/ML 100 ML Bottle IVPUSH ONE (17:28)
[2024-07-20] MEDS: Sodium Chloride 0.9% 1,000 ML IV ONE (17:41)
[2024-07-20 17:48] LABS: A/G RATIO 1.3 (0.9-1.6); ALBUMIN 4.1 g/dL (3.4-5.0); BILIRUBIN TOTAL 0.6 mg/dL (0.2-1.0); CALCIUM 8.8 mg/dL (8.5-10.1); CARBON DIOXIDE,CO2 26.6 mmol/L (21.0-32.0); CREATININE 0.7 mg/dL (0.6-1.0); EST CRCL DRUG DOSING (CG) 90.41 mL/min; MAGNESIUM 2.1 mg/dL (1.8-2.4); POTASSIUM,K 4.4 mmol/L (3.5-5.1); PROTEIN TOTAL,TP 7.2 g/dL (6.4-8.2)
[2024-07-20 17:50] LABS: APPEARANCE,URINE CLEAR; BILIRUBIN,URINE NEGATIVE (NEGATIVE); COLOR,URINE YELLOW; GLUCOSE,URINE NEGATIVE (NEGATIVE); KETONES,URINE TRACE mg/dL (NEGATIVE); LEUKOCYTE ESTERASE,URINE NEGATIVE (NEGATIVE); NITRITE,URINE NEGATIVE (NEGATIVE); OCCULT BLOOD,URINE NEGATIVE (NEGATIVE); PH,URINE 5.5 (5.0-8.0); PROTEIN,URINE NEGATIVE (NEGATIVE); UROBILINOGEN,URINE 0.2 EU/dL (<2.0)
[2024-07-20] MEDS ORDERED: Ketorolac 30 MG/ML SDV IVPUSH ONE (18:17)
[2024-07-20] MEDS ORDERED: Dicyclomine 10 MG Cap PO ONE (18:17)
[2024-07-20] MEDS: Acetaminophen 500 MG Tab PO STA (18:27)
== END 2024-07-20 19:04 | disposition home or self-care (01) ==
LOC: MW.ED 15:36
DX: K52.9 Noninfective gastroenteritis and colitis, unspecified (principal); Z88.2 Allergy status to sulfonamides; Z75.8 Other problems related to medical facilities and other health care
CPT/HCPCS: 36415; 74177; 80053; 81003; 81025; 83690; 83735; 85025; 96360; 99284; A9270; J7030; Q9967